=== PATIENT | female | born 1935 | race Caucasian/White ===

== ENCOUNTER 2018-04-15 10:42 | Inpatient (IN) | payer OTHER ==
[~2018-04-15] VITALS: Ht 152.4 cm; Wt 72.6 kg
[2018-05-02] MEDS ORDERED: PERCOCET 5-3251 EACH PO (15:58)
[2018-05-02] MEDS ORDERED: DOCUSATE SODIU100 MG PO (15:58)
[2018-05-02] MEDS ORDERED: CLONAZEPAM1 MG PO (15:58)
[2018-05-02] MEDS ORDERED: AMOX-CLAV 875-1 EACH PO (15:58)
[2018-05-02] MEDS ORDERED: GABAPENTIN800 MG PO (15:58)
== END 2018-05-04 10:42 | disposition home or self-care (01) | DRG 455 ==
LOC: PED 05-02 04:50 → O/R 05-02 04:50 → SURH 05-02 10:00 → PED 05-02 16:51
PROVIDERS: Orthopaedic Surgery Orthopaedic Surgery of the Spine
PROC: 0SG1071 Fusion of 2 or more Lumbar Vertebral Joints with Autologous Tissue Substitute, Posterior Approach, Posterior Column, Open Approach (ICD-10-PCS; 2018-05-02)
PROC: 0ST20ZZ Resection of Lumbar Vertebral Disc, Open Approach (ICD-10-PCS; 2018-05-02)
PROC: 0SG10AJ Fusion of 2 or more Lumbar Vertebral Joints with Interbody Fusion Device, Posterior Approach, Anterior Column, Open Approach (ICD-10-PCS; 2018-05-02)
PROC: 07DS3ZZ Extraction of Vertebral Bone Marrow, Percutaneous Approach (ICD-10-PCS; 2018-05-02)
PROC: 0SG10A0 Fusion of 2 or more Lumbar Vertebral Joints with Interbody Fusion Device, Anterior Approach, Anterior Column, Open Approach (ICD-10-PCS; principal; 2018-05-02 10:00)
DX: M47.26 Other spondylosis with radiculopathy, lumbar region (principal); M51.16 Intervertebral disc disorders with radiculopathy, lumbar region; M48.061 Spinal stenosis, lumbar region without neurogenic claudication